=== PATIENT | male | born 1990 | race Caucasian/White ===

== ENCOUNTER 2019-06-08 12:01 | Emergency (ER) | payer SELFPAY ==
[~2019-06-08] VITALS: Ht 182.9 cm; Wt 108.4 kg
[2019-06-08 12:03] VITALS: Ht 182.9 cm; Wt 108.4 kg
[2019-06-08 13:04] LABS: BASOPHIL % 0.6 % (0-2); PLATELET COUNT 247 x10^3mcL (130-400); RED CELL DISTRIBUTION WIDTH 12.7 % (11.5-14.5)
[2019-06-08 13:12] LABS: CALCIUM 9.2 mg/dL (8.5-10.1); CHLORIDE SERUM 102 mmol/L (98-107); CREATININE SERUM 0.8 mg/dL (0.7-1.3); GFR1 > 60 mL/min; GLUCOSE SERUM 97 mg/dL (74-106); POTASSIUM SERUM 4.2 mmol/L (3.5-5.1); SODIUM SERUM 140 mmol/L (136-145)
[2019-06-08 13:15] LABS: ALBUMIN 4.6 g/dL (3.4-5.0); ALKALINE PHOSPHATASE 101 U/L (46-116); ALT/SGPT 44 U/L (16-63); AMYLASE 53 U/L (25-115); AST/SGOT 18 U/L (15-37); LIPASE 86 IU/L (73-393)
[2019-06-08 13:18] LABS: TOTAL PROTEIN, SERUM 8.3 g/dL (6.4-8.2)
[2019-06-08 14:39] VITALS: BP 134/79
== END 2019-06-08 14:39 | disposition home or self-care (01) ==
LOC: ED 12:01
PROVIDERS: Emergency Medicine
DX: R10.11 Right upper quadrant pain (principal); R10.31 Right lower quadrant pain; J45.909 Unspecified asthma, uncomplicated; I10 Essential (primary) hypertension; Z98.890 Other specified postprocedural states
CPT/HCPCS: J1885